=== PATIENT | female | born 1995 | race Caucasian/White ===

== ENCOUNTER 2019-08-26 23:28 | Inpatient (IN) | payer BC ==
[~2019-08-26] VITALS: Ht 175.3 cm; Wt 102.1 kg
[2019-08-26] MEDS ORDERED: ONDANSETRON HCL/PF 4 MG/2 ML VIAL ONE (23:50)
--- NOTE | 2019-08-26 23:50 | NUR ---
BIBS FOR C/O LUQ ABD PAIN X 40 MIN , +NAUSEA, - VOMITING. PT WAS DIAGNOSED W/ UTI EARLIER TODAY AND WAS STARTED ON PO ANTIBIOTIC. PT AMBULATORY TO BED 11. URINE SAMPLE WAS OBTAINED. PT IS PLACED ON A MONITOR. VVS. WILL CONT TO MONITOR ,
[2019-08-26] MEDS ORDERED: MORPHINE SULFATE INJ 4 MG/ML DISP.SYRIN ONE (23:51)
[2019-08-27] MEDS ORDERED: IV NS 0.9% 1,000 ML BAG IV ONE
[2019-08-27] MEDS ORDERED: ONDANSETRON HCL/PF 4 MG/2 ML VIAL IVP ONE
[2019-08-27] MEDS ORDERED: FAMOTIDINE/PF INJ 20 MG/2 ML VIAL IV ONE ×2 (00:05)
[2019-08-27 00:20] LABS: BASOPHILS % (AUTO) 0.3 % (0.0-2.0); EOSINOPHILS % (AUTO) 1.9 % (0.0-6.0); HEMATOCRIT 45 % (33-45); HEMOGLOBIN 15.5 g/dL (11.5-14.8); LYMPHOCYTES # (AUTO) 1.4 /CMM (0.8-4.8); LYMPHOCYTES % (AUTO) 14.4 % (20.0-44.0); MEAN CORPUSCULAR HGB CONC 35 g/dl (31.0-36.0); MEAN CORPUSCULAR VOLUME 92 fL (82-100); MONOCYTES # (AUTO) 0.9 /CMM (0.1-1.30); MONOCYTES % (AUTO) 9.1 % (2.0-12.0); NEUTROPHILS # (AUTO) 7.3 /CMM (1.8-8.9); NEUTROPHILS % (AUTO) 74.3 % (43.0-81.0); PLATELET COUNT (AUTO) 245 /CMM (150-450); RED BLOOD CELL COUNT(AUTO) 4.89 MIL/uL (4.0-5.2); WHITE BLOOD COUNT (AUTO) 9.8 K/uL (4.3-11.0)
--- NOTE | 2019-08-27 00:20 | NUR ---
CALLED RADIOLOGY TO ENSURE US TECH HAS PAGED FOR GALL BLADDER US.
[2019-08-27 00:23] LABS: CALCIUM, SERUM 9.6 mg/dL (8.5-10.1); CREATININE 0.9 mg/dL (0.6-1.3); POTASSIUM 3.7 mmol/L (3.5-5.1)
--- NOTE | 2019-08-27 00:26 | NUR ---
US AT BEDSIDE
[2019-08-27 00:28] LABS: BILIRUBIN,DIRECT 4.7 mg/dL (0.0-0.2); BILIRUBIN,TOTAL 5.6 mg/dL (0.2-1.0); TOTAL PROTEIN, SERUM 7.9 g/dL (6.4-8.2)
[2019-08-27] MEDS ORDERED: MORPHINE SULFATE INJ 4 MG/ML DISP.SYRIN ONE (00:58)
--- NOTE | 2019-08-27 00:58 | NUR ---
ER ON THE PHONE W/ DR FALLON SURGERY ON- CALL
[2019-08-27] MEDS ORDERED: FLAGYL/NS RTU 500 MG/100 ML PIGGYBACK IV ONE (01:00)
[2019-08-27] MEDS ORDERED: MORPHINE SULFATE INJ 2 MG/ML DISP.SYRIN IV ONE ×2 (01:00)
[2019-08-27] MEDS ORDERED: CIPROFLOXACIN IV RTU 400 MG in PREMIX 1 EA IV SCH (01:00)
[2019-08-27] MEDS ORDERED: METRONIDAZOLE 500MG/ NS 100ML 100 ML IV ONE (01:08)
[2019-08-27] MEDS ORDERED: CIPROFLOXACIN IV RTU 200 ML IV ONE (01:08)
--- NOTE | 2019-08-27 01:14 | NUR ---
PATIENT AMBULATED TO THE RESTROOM WITH A STEADY GAIT.
--- NOTE | 2019-08-27 01:18 | NUR ---
CALLED HOUSE SUPPERVISOR FOR MS BED
--- NOTE | 2019-08-27 01:20 | NUR ---
MS BED 206-2
--- NOTE | 2019-08-27 01:32 | NUR ---
PATIENT'S IV LINE HAS BEEN INFILTRATED. IV LINE REMOVED.
--- NOTE | 2019-08-27 01:35 | NUR ---
PATIENT'S IV LINE IS ESTABLISHED ON THE RIGHT FOREARM 20G.
[2019-08-27 02:10] VITALS: BP 136/91
--- NOTE | 2019-08-27 02:30 | NUR ---
RN OPENING NOTES RECEIVED REPORT FROM ELEMENT SETTER DIANN. Pt ARRIVED TO THE FLOOR VIA ER ARLYN. WAS ABLE TO WALK TO THE ROOM BED WITH STEADY GAIT. NO S/S OF ACUTE DISTRESS OR SOB NOTED. Pt IS A/OX4, VERBAL, ABLE TO MAKE NEEDS KNOWN. IV ACCESS LOCATED ON RFA #20G. SAFETY MEASURES IN PLACE. BED LOW, LOCKED, HOB ELEVATED, SIDE RAILS UP, CALL LIGHT AND BEDSIDE TABLE WITHIN REACH. WILL CONTINUE TO MONITOR Pt's CONDITION AND SAFETY THROUGHOUT THE NIGHT.
--- NOTE | 2019-08-27 02:35 | NUR ---
RN NOTES Pt REFUSED SKIN ASSESSMENT OF PRIVATE AREAS. STATED THAT SHE HAS NO WOUNDS ON HER BODY.
[2019-08-27] MEDS ORDERED: MAG HYDROX/AL HYDROX/SIMETH 30 ML UDC PO PRN (03:00)
[2019-08-27] MEDS ORDERED: ZOLPIDEM TARTRATE 5 MG TABLET PO PRN (03:00)
[2019-08-27] MEDS ORDERED: MORPHINE SULFATE INJ 2 MG/ML DISP.SYRIN IV PRN (03:00)
[2019-08-27] MEDS ORDERED: ACETAMINOPHEN 325 MG TABLET PO PRN (03:00)
[2019-08-27] MEDS ORDERED: Z GUARD REMEDY 2 OZ OINT TP PRN (03:00)
[2019-08-27] MEDS ORDERED: MAGNESIUM HYDROXIDE 30 ML UDC PO PRN (03:00)
[2019-08-27] MEDS ORDERED: ZOSYN IVPB 3.375 G in IV D5W 50ml IV ONE (03:30)
[2019-08-27] MEDS ORDERED: PIPERACILLIN /TAZOBACTAM 3.375 G VIAL IV ONE (03:54)
[2019-08-27] MEDS: IV NS 0.9% 1,000 ML IV SCH ×2 (04:30→15:51)
[2019-08-27] MEDS ORDERED: PIPERACILLIN /TAZOBACTAM 3.375 G in IV D5W 50 ML IV SCH (06:00)
[2019-08-27] MEDS ORDERED: OMEP20TA20 PO (06:34)
[2019-08-27] MEDS: HYDROCODONE/APAP 5/325MG 1 EACH TABLET PO PRN ×2 (06:36→14:22)
--- NOTE | 2019-08-27 07:30 | NUR ---
RN NOTES SPOKE ON THE PHONE WITH DR FALLON. READ HIM THE Pt's US GALLBLADDER RESULTS & LAB RESULTS. PER MD TO ORDER COVID SWAB & A STAT MRCP. WILL CARRY OUT ORDER & ENDORSE TO MIKHAIL RN.
--- NOTE | 2019-08-27 07:43 | NUR ---
RN CLOSING NOTES ENDORSED TO DAYSHIFT BETTE RENO FOR Pt's NATALY. NO SIGNIFICANT CHANGES NOTED DURING THE SHIFT. ALL NEEDS MET AND ATTENDED TO. NO S/S OF ACUTE DISTRESS OR SOB NOTED DURING THE NIGHT. SAFETY MEASURES IN PLACE.
[2019-08-27 08:00] VITALS: BP 133/81
--- NOTE | 2019-08-27 08:00 | NUR ---
MS RN OPENING NOTES Received Patient asleep and resting in bed. A/O x 4. VS stable with no acute distress. Breathing even and unlabored on room air with no respiratory distress. Patient stated abdominal pain 10/04. Will intervene as ordered. 20g PIV on RFA clean, intact, patent and flushing well with NS infusing at 90ml/hr. Safety precautions in place. Bed locked and set to lowest position with side rails x 2 up. All needs rendered at this time. Call light within reach. Will continue to monitor.
[2019-08-27] MEDS ORDERED: NITR100C PO (08:53)
[2019-08-27] MEDS: PANTOPRAZOLE 40 MG VIAL IV SCH (09:10)
[2019-08-27] MEDS: MORPHINE SULFATE INJ 2 MG/ML DISP.SYRIN IV PRN ×4 (09:20→21:07)
[2019-08-27] MEDS: ONDANSETRON HCL/PF 4 MG/2 ML VIAL IVP PRN ×2 (11:00→19:05)
[2019-08-27] MEDS: PIPERACILLIN /TAZOBACTAM 3.375 G in IV D5W 100 ML IV SCH ×2 (11:31→17:29)
[2019-08-27] MEDS: SIMETHICONE 80 MG TAB.CHEW PO PRN ×2 (15:50→22:16)
[2019-08-27 16:00] VITALS: BP 138/97
--- NOTE | 2019-08-27 18:23 | NUR ---
MS RN CLOSING NOTES Patient asleep and resting in bed. A/O x 4. VS stable with no acute distress. Breathing even and unlabored on room air with no respiratory distress. Denies pain. No signs and symptoms of pain. 20g PIV on RFA clean, intact, patent and flushing well with NS infusing at 90ml/hr. Safety precautions in place. Bed locked and set to lowest position with side rails x 2 up. All needs rendered at this time. Call light within reach. Will endorse plan of care to oncoming shift.
--- NOTE | 2019-08-27 19:55 | NUR ---
RN OPENING NOTES RECEIVED REPORT FROM [facility] FOUND Pt AWAKE, RESTING IN BED. Pt IS A/OX4, VERBAL, ABLE TO MAKE NEEDS KNOWN. NO S/S OF ACUTE DISTRESS OR SOB NOTED. IV ACCESS ON RFA #20G; IVF NS @90ML/HR. Pt IS SCHEDULED FOR [facility] TOMORROW @[address] FALLON. PER BETTE RENO CONSENTS WERE ALL SIGNED BY Pt AND PLACED IN CHART. SAFETY MEASURES IN PLACE. BED LOW, LOCKED, HOB ELEVATED, SIDE RAILS UP, CALL LIGHT AND BEDSIDE TABLE WITHIN REACH. WILL CONTINUE TO MONITOR Pt's CONDITION AND SAFETY THROUGHOUT THE NIGHT. Addendum: 08/27/19 at 2017 by MEL B[place] RN Pt WILL BE NPO STARTING AT MIDNIGHT TONIGHT.
[2019-08-27 20:00] VITALS: BP 128/77
--- NOTE | 2019-08-27 22:17 | NUR ---
MS2/RN C/O STOMACH BLOATING, SIMETHICONE PO WAS GIVEN ORDERED, WILL MONITOR.
[2019-08-28] MEDS: PIPERACILLIN /TAZOBACTAM 3.375 G in IV D5W 100 ML IV SCH ×3 (00:23→17:44)
[2019-08-28] MEDS: MORPHINE SULFATE INJ 2 MG/ML DISP.SYRIN IV PRN (00:43)
[2019-08-28] MEDS: IV NS 0.9% 1,000 ML IV SCH (04:40)
--- NOTE | 2019-08-28 06:33 | NUR ---
RN CLOSING NOTES NO SIGNIFICANT CHANGES IN Pt's CONDITION. ALL NEEDS MET AND ATTENDED TO. NO S/S OF ACUTE DISTRESS OR SOB NOTED DURING THE NIGHT. Pt RESTING COMFORTABLY IN BED. SAFETY MEASURES IN PLACE. JULIO ARMENDARIZ SCHEDULED TODAY @[address] FALLON. WILL ENDORSE TO DAYSHIFT RN FOR Pt's NATALY.
--- NOTE | 2019-08-28 06:36 | NUR ---
RN NOTES URINE COLLECTED AND SENT TO LAB.
[2019-08-28 07:16] LABS: BASOPHILS % (AUTO) 0.4 % (0.0-2.0); EOSINOPHILS % (AUTO) 2.4 % (0.0-6.0); HEMATOCRIT 35 % (33-45); HEMOGLOBIN 11.7 g/dL (11.5-14.8); LYMPHOCYTES % (AUTO) 13.5 % (20.0-44.0); MEAN CORPUSCULAR HGB CONC 34 g/dl (31.0-36.0); MEAN CORPUSCULAR VOLUME 93 fL (82-100); MONOCYTES # (AUTO) 0.7 /CMM (0.1-1.30); MONOCYTES % (AUTO) 9.9 % (2.0-12.0); NEUTROPHILS # (AUTO) 5.3 /CMM (1.8-8.9); NEUTROPHILS % (AUTO) 73.8 % (43.0-81.0); PLATELET COUNT (AUTO) 171 /CMM (150-450); RED BLOOD CELL COUNT(AUTO) 3.74 MIL/uL (4.0-5.2); WHITE BLOOD COUNT (AUTO) 7.1 K/uL (4.3-11.0)
[2019-08-28 07:34] LABS: ALBUMIN 2.4 g/dL (3.4-5.0); BILIRUBIN,DIRECT 4.4 mg/dL (0.0-0.2); CALCIUM, SERUM 7.3 mg/dL (8.5-10.1); CREATININE 0.7 mg/dL (0.6-1.3); MAGNESIUM 1.5 mg/dL (1.8-2.4); PHOSPHORUS 2.2 mg/dL (2.5-4.9); TOTAL PROTEIN, SERUM 5.5 g/dL (6.4-8.2)
--- NOTE | 2019-08-28 07:40 | NUR ---
MS RN OPENING NOTES RECEIVED PATIENT IN BED, AWAKE, A/O X4. PATIENT IS ON ROOM AIR; BREATHING IS EVEN AND UNLABORED; NO SOB PRESENT AT THIS MOMENT. PATIENT AWAITING SURGERY THIS A.M. NPO AT THIS TIME. L WRIST IV ACCESS G # 22 PRESENT AND INTACT. SAFETY PRECAUTIONS IN PLACE; BED IN LOW POSITION AND LOCKED, RAILS UP X2, CALL LIGHT WITHIN REACH. WILL CONTINUE TO MONITOR.
[2019-08-28 08:14] VITALS: BP 139/99
[2019-08-28] MEDS: PANTOPRAZOLE 40 MG VIAL IV SCH (08:39)
[2019-08-28] MEDS ORDERED: POTASSIUM CL. PREMIX PERIPHER. 50 ML IV ONE (09:00)
[2019-08-28] MEDS ORDERED: POTASSIUM CL. PREMIX PERIPHER. 50 ML IV STA (09:17)
--- NOTE | 2019-08-28 09:39 | NUR ---
MS RN NOTES PATIENT LEFT FOR SURGERY
[2019-08-28] MEDS ORDERED: HYDROMORPHONE INJ 2 MG/ML DISP.SYRIN ONE (09:40)
[2019-08-28] MEDS ORDERED: ROCURONIUM BROMIDE 50 MG/5 ML ONE (09:40)
[2019-08-28] MEDS ORDERED: MIDAZOLAM HCL 2 MG/2ML VIAL ONE (09:40)
[2019-08-28] MEDS ORDERED: IOHEXOL 240MG/ML 50 ML IV ONE (09:44)
[2019-08-28] MEDS ORDERED: BUPIVACAINE 0.5 % PF 150 MG/30 ML VIAL ONE (09:45)
[2019-08-28] MEDS ORDERED: BUPIVACAINE MPF 0.5% W/EPI INJ 30 ML VIAL ONE (09:45)
[2019-08-28] MEDS ORDERED: SEVOFLURANE 250 ML BOTTLE IH ONE (10:05)
[2019-08-28] MEDS ORDERED: DESFLURANE 240 ML BOTTLE IH ONE (10:05)
[2019-08-28] MEDS ORDERED: POTASSIUM CL. PREMIX PERIPHER. 50 ML IV SCH (10:30)
[2019-08-28] MEDS ORDERED: ONDANSETRON HCL/PF 4 MG/2 ML VIAL ONE (11:41)
[2019-08-28] MEDS ORDERED: METOCLOPRAMIDE HCL 10 MG/2 ML VIAL ONE (12:11)
[2019-08-28] MEDS ORDERED: IV PREMIX D5 1/2NS + KCL 1,000 ML IV PRN (12:30)
[2019-08-28] MEDS ORDERED: oxyCODONE/APAP (5/325 MG) 1 UDTAB TABLET PO PRN (12:30)
[2019-08-28] MEDS: Magnesium 1GM/D5W 100ML PREMIX 100 ML IV SCH ×3 (12:30→15:40)
--- NOTE | 2019-08-28 13:00 | NUR ---
MS RN NOTES PATIENT BACK FROM SURGERY IN MEDICALLY STABLE CONDITION. ORDERS CARRIED OUT.
[2019-08-28] MEDS ORDERED: POTASSIUM CHLORIDE 20 MEQ TAB.PRT.SR PO ONE (15:30)
[2019-08-28] MEDS ORDERED: K PHOS NEUTRAL 250 MG TABLET PO ONE (15:30)
[2019-08-28 16:07] VITALS: BP 126/78
--- NOTE | 2019-08-28 18:48 | NUR ---
MS RN CLOSING NOTES PATIENT IN BED, AWAKE, A/O X4. PATIENT IS ON ROOM AIR; BREATHING IS EVEN AND UNLABORED; NO SOB PRESENT AT THIS MOMENT. PATIENT POST SURGERY ON REGULAR DIET PER MD. R HAND IV ACCESS G # 20 PRESENT AND INTACT. JOSS DRAIN ON THE RIGHT SIDE WITH TOTAL DRAINAGE OF 65 MLS. ALL NEEDS ATTENDED TO THROUGHOUT THE DAY. SAFETY PRECAUTIONS IN PLACE; BED IN LOW POSITION AND LOCKED, RAILS UP X2, CALL LIGHT WITHIN REACH. WILL ENDORSE TO LICENSED LAND SURVEYOR NURSE.
--- NOTE | 2019-08-28 19:26 | NUR ---
RN OPENING NOTES RECEIVED REPORT FROM CAMI ELIZONDO RN. FOUND Pt AWAKE, RESTING IN BED. Pt IS A/OX4, VERBAL, ABLE TO MAKE NEEDS KNOWN. NO S/S OF ACUTE DISTRESS OR SOB NOTED. IV ACCESS ON RHAND #20G; IVF D5 1/2NS + 20MEQ KCL @100ML/HR. S/P LAP KALA TODAY WITH DR FALLON. JOSS DRAIN LOCATED ON RT SIDE ABD. NO SIGNS OF BLEEDING NOTED ON DRESSING. NO C/O SEVERE PAIN AT THIS TIME. SAFETY MEASURES IN PLACE. BED LOW, LOCKED, HOB ELEVATED, SIDE RAILS UP, CALL LIGHT AND BEDSIDE TABLE WITHIN REACH. WILL CONTINUE TO MONITOR Pt's CONDITION AND SAFETY THROUGHOUT THE NIGHT.
[2019-08-28 20:11] VITALS: BP 118/85
[2019-08-28 20:46] VITALS: BP 118/85
[2019-08-29] MEDS: PIPERACILLIN /TAZOBACTAM 3.375 G in IV D5W 100 ML IV SCH ×2 (00:55→08:49)
[2019-08-29] MEDS: MORPHINE SULFATE INJ 2 MG/ML DISP.SYRIN IV PRN ×2 (01:21→04:59)
--- NOTE | 2019-08-29 06:34 | NUR ---
RN CLOSING NOTES NO SIGNIFICANT CHANGES IN Pt's CONDITION. ALL NEEDS MET AND ATTENDED TO. NO S/S OF ACUTE DISTRESS OR SOB NOTED DURING THE NIGHT. Pt IS RESTING COMFORTABLY IN BED AT THIS TIME. SAFETY MEASURES IN PLACE. JOSS DRAIN OUTPUT 25CC. WILL ENDORSE TO DAYSHIFT RN FOR Pt's NATALY.
[2019-08-29 06:56] LABS: BASOPHILS % (AUTO) 0.1 % (0.0-2.0); EOSINOPHILS % (AUTO) 0.5 % (0.0-6.0); HEMATOCRIT 36 % (33-45); LYMPHOCYTES # (AUTO) 1.1 /CMM (0.8-4.8); LYMPHOCYTES % (AUTO) 14.3 % (20.0-44.0); MEAN CORPUSCULAR HGB CONC 34 g/dl (31.0-36.0); MEAN CORPUSCULAR VOLUME 92 fL (82-100); MONOCYTES # (AUTO) 0.6 /CMM (0.1-1.30); MONOCYTES % (AUTO) 7.4 % (2.0-12.0); NEUTROPHILS # (AUTO) 5.9 /CMM (1.8-8.9); NEUTROPHILS % (AUTO) 77.7 % (43.0-81.0); PLATELET COUNT (AUTO) 222 /CMM (150-450); RED BLOOD CELL COUNT(AUTO) 3.87 MIL/uL (4.0-5.2); WHITE BLOOD COUNT (AUTO) 7.6 K/uL (4.3-11.0)
--- NOTE | 2019-08-29 07:27 | NUR ---
Patient resting in bed , awake alert and oriented x4. No distress noted , on room air .
[2019-08-29 08:00] VITALS: BP 129/98
[2019-08-29 08:00] LABS: CALCIUM, SERUM 8.5 mg/dL (8.5-10.1); CREATININE 0.8 mg/dL (0.6-1.3); MAGNESIUM 2.1 mg/dL (1.8-2.4); PHOSPHORUS 2.7 mg/dL (2.5-4.9); POTASSIUM 3.9 mmol/L (3.5-5.1)
[2019-08-29 08:22] LABS: ALBUMIN 2.6 g/dL (3.4-5.0); BILIRUBIN,TOTAL 2.6 mg/dL (0.2-1.0); TOTAL PROTEIN, SERUM 6.3 g/dL (6.4-8.2)
[2019-08-29] MEDS: PANTOPRAZOLE 40 MG VIAL IV SCH (08:49)
--- NOTE | 2019-08-29 09:30 | NUR ---
at bedside; JOSS Rosales removed , no s/s infection noted . Patient denies pain .
--- NOTE | 2019-08-29 14:40 | NUR ---
Patient cleared for d/c to home by . Patient awake alert and orientedx4, breathing unlabored and even on room air and VS are stable . D/C instruction provided , patient also received prescription for pain medicine and sight effects explained; patient verbalized understanding.Patient received dr. Nevarez contacts and office address to f/u in one week and staple removal. D/c papers and valuable form sighed by patient and all belongings with the patient. IV line removed and ID wrists bands removed. Patient safely transferred to [facility] via wheelchair accompanied by NAI Banerjee.
== END 2019-08-29 16:41 | disposition home or self-care (01) | DRG 419 ==
LOC: ER 23:28 → MEDSG2 08-27 01:26
PROVIDERS: ADMIT Student in an Organized Health Care Education/Training Program; ATTEND Student in an Organized Health Care Education/Training Program
PROC: 0FT44ZZ Resection of Gallbladder, Percutaneous Endoscopic Approach (ICD-10-PCS; principal; 2019-08-28)
DX: K80.00 Calculus of gallbladder with acute cholecystitis without obstruction (principal); E83.42 Hypomagnesemia; E87.6 Hypokalemia; R74.0 Nonspecific elevation of levels of transaminase and lactic acid dehydrogenase [LDH]
CPT/HCPCS: 36415; 74181-TC; 76705-TC; 80048-TC; 80053-TC; 80076-TC; 83690-TC; 83735-TC; 84100-TC; 84703-TC; 85025-TC; 86850-TC; 87081-TC; A4216; C9113; G0378; J0330; J0744; J1100; J1170; J1885; J2250; J2270; J2405; J2543; J2704; J2710; J2765; J3475; J3480; J3490; J7030; J7060; Q9966; U0003-CS